=== PATIENT | male | born 1970 | race Caucasian/White ===

== ENCOUNTER 2023-09-02 20:49 | Emergency (ER) | payer MEDICAID, OTHER ==
[~2023-09-02] VITALS: Ht 177.8 cm; Wt 70.8 kg
[2023-09-02 21:14] VITALS: TEMP 98.2
[2023-09-02 23:03] VITALS: BP 130/70; O2SAT 96
== END 2023-09-02 23:04 | disposition left against medical advice (07) ==
LOC: ER 21:00
DX: S01.511A Laceration without foreign body of lip, initial encounter (principal); Z60.2 Problems related to living alone; Y04.0XXA Assault by unarmed brawl or fight, initial encounter; Y93.89 Activity, other specified; Y92.89 Other specified places as the place of occurrence of the external cause; Y99.8 Other external cause status